=== PATIENT | male | born 1955 | race Caucasian/White ===

== ENCOUNTER 2024-01-01 09:39 | Emergency (ER) | payer MEDICARE, BC, SELFPAY ==
[2024-01-01 09:41] VITALS: BP 144/84
--- NOTE | 2024-01-01 10:45 | ED.MUSCINJ ---
HPI-Injury
General
Chief Complaint: Musculo-Skeletal Complaint
Source: patient
Exam Limitations: none
Time Seen by Provider: 01/01/24 09:57
History of Present Illness-Injury
Initial Injury comments:
68-year-old male presents complaining of 3 to 4 days worth of pain to the left foot and ankle. It started like his normal gout attacks would. He increase his indomethacin however symptoms are not better. Is concerned about underlying fracture.
No known injury. No fevers. No other complaints at this time
Phy Exam
Physical Exam
Physical Exam:
General: Well-appearing male no acute respiratory distress
HEENT: Normocephalic atraumatic
Musculoskeletal exam: Left foot slightly tender over the dorsal aspect of the foot and anterior ankle. No deformities good range of motion no obvious effusion in the joint.
Skin is warm no overlying erythema or induration
Vascular: 2+ dorsalis pedis pulse left foot
Injury Course
Orders/Labs/Results
Orders:
Orders
01/01/24 09:45
Ankle, left 3 view CR [CR Ankle - Left Min 3 Views ] Urgent
Comment:
Reason For Exam: pain
CR Foot - Left Min 3 Views Urgent
Comment:
Reason For Exam: pain
MDM/Problems Addressed
Differential Diagnosis Includes:
Left foot pain and ankle pain. History of gout. Consider flare of gout versus arthritis versus fracture. No sign on exam of cellulitis.
X-rays of the left ankle and foot were reviewed personally and are negative for acute bony abnormality. I suspect underlying inflammatory gout. He will continue his indomethacin. Considered antibiotics but not indicated.
*Critical Care Note
Total Time (30-74mins, 75-104mins- exclusive of procedures): Not Applicable
ED Attending Note
-
Portions of this chart may have been created with voice recognition software.� Occasional wrong word or��sound alike� substitutions may have occurred due to the inherent limitations of voice recognition software.
Discharge Plan
Departure
Patient Disposition: Home (Routine Discharge)
Date of Disposition: 01/01/24
Time of Disposition: 10:47
Patient with high blood pressure during this ER visit?: No
Discharge Problem:
Pain, foot
Instructions: Muscle and Bone Pain (DC)
Referrals:
Andrew Mcknight MD [Family Provider] -
Activity Restrictions/Additional Instructions:
Continue taking your anti-inflammatories. Rest. Return if worse otherwise follow-up with your family doctor
Discharge Date and Time
Print Language: GERMAN
== END 2024-01-01 10:54 | disposition home or self-care (01) ==
LOC: EMR 09:39
PROVIDERS: EMERGENCY PHYSICIAN Student in an Organized Health Care Education/Training Program; FAMILY PHYSICIAN Internal Medicine
DX: M79.672 Pain in left foot (principal); M10.9 Gout, unspecified
CPT/HCPCS: 99283; 73610; 73630

== ENCOUNTER 2024-06-07 13:32 | Emergency (ER) | payer MEDICARE, BC, SELFPAY ==
[2024-06-07 13:44] VITALS: BMI 33.8
[2024-06-07 14:00] VITALS: BP 142/75
[2024-06-07 14:02] LABS: % Basophils 0.6 % (0-2); % Eosinophils 4.1 % (0-6); % Immature Granulocytes 0.3 % (0-0.5); % Lymphocytes 25.8 % (20.5-51.1); % Monocytes 9.6 % (1.7-9.3); % Neutrophils 59.6 % (42.2-75.2); Absolute Eosinophils 0.3 10^3/uL (0-0.7); Absolute Lymphocytes 1.7 10^3/uL (1.2-3.4); Absolute Monocytes 0.6 10^3/uL (0.1-0.6); Absolute Neutrophils 3.9 10^3/uL (1.4-6.5); Hemoglobin 15.6 g/dL (13.0-18.0); Mean Corp Hgb Conc. 33.9 g/dL (33.0-37.0); Mean Corpuscular Hgb 32.2 pg (27.0-31.0); Mean Platelet Volume 8.6 fL (7.4-10.4); Nucleated Red Blood Cells % 0 % (-); Platelet Count 246 10^3/uL (130-400); Red Blood Cell Count 4.84 10^6/uL (4.70-6.10); Red Cell Dist. Width 12.4 % (11.5-14.5); White Blood Cell Count 6.5 10^3/uL (4.8-10.8)
[2024-06-07 14:15] LABS: ALT (SGPT) 41 U/L (0-50); AST (SGOT) 30 U/L (17-59); Albumin 4.3 g/dl (3.5-5.0); Alkaline Phosphatase 79 U/L (38-126); Blood Urea Nitrogen 33 mg/dl (9-20); Calcium 9.7 mg/dl (8.4-10.2); Carbon Dioxide 27 mmol/L (22-30); Chloride 102 mmol/L (98-107); Estimated Creatinine Clearance 59 ml/min; Glucose 165 mg/dl (70-99); Potassium 4.5 mmol/L (3.5-5.1); Sodium 136 mmol/L (135-145); Total Bilirubin 0.8 mg/dl (0.2-1.3); eGFR 46.06
--- NOTE | 2024-06-07 14:17 | EDRN ---
Sridhar Harris PA in room w/pt at this time.
[2024-06-07 14:27] LABS: Troponin I < 0.012 ng/ml
[2024-06-07 15:01] VITALS: BP 139/80
--- NOTE | 2024-06-07 15:34 | ED.GENMED ---
History of Present Illness
<Ezekiel Harris PA-C - Last Filed: 06/08/24 08:02>
General
Chief Complaint: Chest Pain
Time Seen by Provider: 06/07/24 13:59
History of Present Illness
History of Present Illness:
68-year-old male presents the emergency department for evaluation of right-sided chest discomfort that began abruptly 1 hour prior to arrival while putting together a scooter for his grandchild. Pain was pleuritic initially however seems to have
improved. Currently rated 4 out of 10. Does not radiate, no extremity paresthesias, no fever, chills, or sweats. No recent illnesses. No prior coronary artery disease.
Review of Systems
<Ezekiel Harris PA-C - Last Filed: 06/08/24 08:02>
Review of Systems
Allergies reviewed?: Yes
All Other Systems: ROS reviewed and negative except as documented in HPI and ROS
Phy Exam
<Ezekiel Harris PA-C - Last Filed: 06/08/24 08:02>
Physical Exam
Physical Exam:
GEN: Well appearing, NAD, WDWN
HEENT: Oral mucosa moist, no scleral icterus
Cardiac: Regular rate and rhythm, no murmurs
Chest: Reproducible tenderness to the right sternal border with no gross deformities palpated
Lung: No respiratory distress, no tachypnea
MSK: No gross deformity or injuries
Skin: Good color, no pallor or jaundice, no rashes
Neuro: AO x3, moves all extremities freely
Psych: Calm, cooperative
Scores
<Ezekiel Harris PA-C - Last Filed: 06/08/24 08:02>
Heart Score for Chest Pain Patients
STEMI patient?: No
History: Slightly or Non-Suspicious
ECG: Normal
Age: >/= 65 years
Risk Factors: 1 or 2 Risk Factors
Troponin: </= Normal Limit
Heart Score for Chest Pain Patients: 3
Heart Score Risk: 2.5% MACE over next 6 weeks
<Roni Bryant PA-C - Last Filed: 06/07/24 16:55>
Heart Score for Chest Pain Patients
Heart Score for Chest Pain Patients: 3
Heart Score Risk: 2.5% MACE over next 6 weeks
Course
<Ezekiel Harris PA-C - Last Filed: 06/08/24 08:02>
Orders/Labs/Results
Orders:
Orders
06/07/24 13:32
Electrocardiogram (*1) Urgent
Reason for Study: Chest Pain
06/07/24 13:33
EKG- Treatment ONCE
06/07/24 13:42
Cardiac Monitoring- Treatment ONCE
IV Insert/Care/Rem.- Treatment PRN
06/07/24 13:55
Complete Blood Count/With Diff Urgent
Comprehensive Metabolic Panel Urgent
Troponin I Urgent
06/07/24 14:33
CR Chest - 2 Views Urgent
Comment:
Reason For Exam: chest pain
06/07/24 15:36
EKG- Treatment ONCE
06/07/24 15:55
Electrocardiogram (*1) Urgent
Reason for Study: Chest Pain
06/07/24 15:59
Troponin I Urgent
Abnormal Lab Results
06/07/24
13:55
MCV 95.0 H fL
(80.0-94.0)
MCH 32.2 H pg
(27.0-31.0)
Monocytes % 9.6 H %
(1.7-9.3)
BUN 33 H mg/dl
(9-20)
Creatinine 1.6 H mg/dL
(0.7-1.3)
Glucose 165 H mg/dl
(70-99)
06/07/24 13:55
06/07/24 13:55
Vital Signs
Initial and Last Documented VS:
Initial Vital Signs
Temp Pulse Resp Pulse Ox
97.7 F 80 16 95
06/07/24 13:35 06/07/24 13:35 06/07/24 13:35 06/07/24 13:35
Last Documented Vital Signs
Temp Pulse Resp BP Pulse Ox
97.7 F 60 18 136/81 94
06/07/24 13:35 06/07/24 17:05 06/07/24 17:05 06/07/24 17:05 06/07/24 17:05
<Roni Bryant PA-C - Last Filed: 06/07/24 16:55>
Orders/Labs/Results
Orders:
Orders
06/07/24 13:32
Electrocardiogram (*1) Urgent
Reason for Study: Chest Pain
06/07/24 13:33
EKG- Treatment ONCE
06/07/24 13:42
Cardiac Monitoring- Treatment ONCE
IV Insert/Care/Rem.- Treatment PRN
06/07/24 13:55
Complete Blood Count/With Diff Urgent
Comprehensive Metabolic Panel Urgent
Troponin I Urgent
06/07/24 14:33
CR Chest - 2 Views Urgent
Comment:
Reason For Exam: chest pain
06/07/24 15:36
EKG- Treatment ONCE
06/07/24 15:55
Electrocardiogram (*1) Urgent
Reason for Study: Chest Pain
06/07/24 15:59
Troponin I Urgent
Abnormal Lab Results
06/07/24
13:55
MCV 95.0 H fL
(80.0-94.0)
MCH 32.2 H pg
(27.0-31.0)
Monocytes % 9.6 H %
(1.7-9.3)
BUN 33 H mg/dl
(9-20)
Creatinine 1.6 H mg/dL
(0.7-1.3)
Glucose 165 H mg/dl
(70-99)
06/07/24 13:55
06/07/24 13:55
Vital Signs
Initial and Last Documented VS:
Initial Vital Signs
Temp Pulse Resp Pulse Ox
97.7 F 80 16 95
06/07/24 13:35 06/07/24 13:35 06/07/24 13:35 06/07/24 13:35
Last Documented Vital Signs
Temp Pulse Resp BP Pulse Ox
97.7 F 60 18 136/81 94
06/07/24 13:35 06/07/24 17:05 06/07/24 17:05 06/07/24 17:05 06/07/24 17:05
<Ezekiel Harris PA-C - Last Filed: 06/08/24 08:02>
MDM/Problems Addressed
MDM/Problems Addressed:
Patient's initial workup is reassuring however will obtain a repeat troponin due to the sudden and acute nature of the patient's symptoms. Do not feel strongly that this represents ACS. Chest x-ray reassuring as well. He is noted to have elevated
BUN and creatinine, recommend outpatient primary care follow-up for this, uncertain if baseline or new. Will sign out pending repeat troponin to Nelson Bryant PA-C
<Ezekeil Harris PA-C - Last Filed: 06/08/24 08:02>
*Critical Care Note
Total Time (30-74mins, 75-104mins- exclusive of procedures): Not Applicable
<Roni Bryant PA-C - Last Filed: 06/07/24 16:55>
Update Note
Update Note:
Assumed care of patient pending repeat troponin. Initial and repeat troponins are undetectable. Patient has atypical chest pain. No indication for admission will be referred to cardiology as an outpatient
ED Attending Note
<Ezekiel Harris PA-C - Last Filed: 06/08/24 08:02>
-
Portions of this chart may have been created with voice recognition software.� Occasional wrong word or��sound alike� substitutions may have occurred due to the inherent limitations of voice recognition software.
Discharge Plan
Departure
Patient Disposition: Home (Routine Discharge)
Date of Disposition: 06/07/24
Time of Disposition: 16:55
Patient with high blood pressure during this ER visit?: No
Discharge Problem:
Atypical chest pain, Creatinine elevation
Instructions: Chest Pain DCA Follow Up
Referrals:
Andrew Mcknight MD [Family Provider] -
Activity Restrictions/Additional Instructions:
Your kidney function tests were mildly elevated. It is uncertain if this is new or old for you. Please follow-up with your primary care physician for further review of your kidney function
Interventions
Interventions:
*Risk Screen - Suicide Last Done: 06/07/24 13:45
*General Assessment Last Done: 06/07/24 13:45
*Neglect/Abuse Screening Last Done: 06/07/24 13:45
*ED- Fall Risk Assessment Last Done: 06/07/24 13:45
*ED COVID-19 Vaccine History Last Done: 06/07/24 13:45
*Nursing Disposition Last Done: 06/07/24 17:10
ED- Cardiac Assessment Last Done: 06/07/24 13:50
Discharge Date and Time
Discharge Date/Time: 06/07/24 17:25
Print Language: POLISH
[2024-06-07 16:00] VITALS: BP 140/75
[2024-06-07 16:32] LABS: Troponin I < 0.012 ng/ml
[2024-06-07 17:05] VITALS: BP 136/81
== END 2024-06-07 17:25 | disposition home or self-care (01) ==
LOC: EMR 13:32
PROVIDERS: Physician Assistant; EMERGENCY PHYSICIAN Emergency Medicine; FAMILY PHYSICIAN Internal Medicine
DX: R07.89 Other chest pain (principal); R79.89 Other specified abnormal findings of blood chemistry
CPT/HCPCS: 99285; 71046; 80053; 84484; 85025; 93005